=== PATIENT | female | born 1975 | race Caucasian/White ===

== ENCOUNTER 2020-08-11 10:22 | Emergency (ER) | payer BC, MEDICAID ==
[~2020-08-11] VITALS: Ht 167.6 cm; Wt 72.6 kg
[2020-08-11] MEDS ORDERED: IV NS 1000 ML 1,000 ML IV ONE (10:30)
--- NOTE | 2020-08-11 11:02 | NUR ---
PT IS IN ROOM # 2A. DR DEE EVALUATED THE PT.
[2020-08-11 11:05] LABS: BASOPHILS # (AUTO) 0.1 K/uL (0.0-8.0); EOSINOPHILS % (AUTO) 0.4 % (0.0-7.0); HEMATOCRIT 37.5 % (31.2-41.9); HEMOGLOBIN 12.6 g/dL (10.9-14.3); LYMPHOCYTES # (AUTO) 1.2 K/uL (20.0-40.0); LYMPHOCYTES % (AUTO) 27.2 % (20.5-51.5); MEAN CORPUSCULAR HEMOGLOBIN 32.1 uug (24.7-32.8); MEAN CORPUSCULAR HGB CONC 34 g/dL (32.3-35.6); MEAN CORPUSCULAR VOLUME 95.2 fL (75.5-95.3); MONOCYTES # (AUTO) 0.3 K/uL (2.0-10.0); NEUTROPHILS # (AUTO) 2.7 K/uL (1.8-8.9); NEUTROPHILS % (AUTO) 62.4 % (38.5-71.5); PLATELET COUNT (AUTO) 235 K/uL (179-408); RED BLOOD CELL COUNT(AUTO) 3.93 MIL/uL (3.63-4.92); WHITE BLOOD COUNT (AUTO) 4.2 K/uL (3.8-11.8)
[2020-08-11 11:26] LABS: BILIRUBIN,TOTAL 0.2 mg/dL (0.2-1.0); CREATININE 0.7 mg/dL (0.6-1.3); POTASSIUM 3.5 mmol/L (3.5-5.1); TOTAL PROTEIN, SERUM 7.6 g/dL (6.4-8.2)
[2020-08-11] MEDS ORDERED: ONDANSETRON 4 MG/2 ML VIAL IV ONE (12:15)
[2020-08-11] MEDS ORDERED: ONDANSETRON 4 MG/2 ML VIAL ONE (12:30)
--- NOTE | 2020-08-11 12:49 | NUR ---
PT WAS D/C'd TO HOME AFTER DR MOON EVALUATION. D/C IN STRUCTIONS GIVEN TO THE PT BY DR MOON.
[2020-08-11 12:51] VITALS: BP 128/88
== END 2020-08-11 12:52 | disposition home or self-care (01) ==
LOC: ER 10:22
DX: U07.1 COVID-19 (principal)
CPT/HCPCS: 36415; 71045; 80053; 82550; 82728; 83615; 83880; 84145; 84484; 85025; 86140; 96361; 96374; 99284; J2405; 70030-TC; A4663; J7030